=== PATIENT | female | born 1990 | race Caucasian/White ===

== ENCOUNTER 2019-03-23 18:58 | Inpatient (IN) | payer MEDICAID ==
[2019-03-23] MEDS: ACETAMINOPHEN 325 MG TAB PO (20:10)
[2019-03-23 20:24] LABS: ADD MAN DIFF? NO
[2019-03-23 20:25] LABS: WHITE BLOOD COUNT 8.3 10^3/ul (4.8-10.8)
[2019-03-23 20:25] LABS: BASOPHILS % 0.5 % (0.0-2.0); EOSINOPHILS # 0.1 10^3/ul (0.0-0.5); EOSINOPHILS % 1.2 % (0.0-7.0); HEMATOCRIT 40.8 % (37.0-47.0); HEMOGLOBIN 13.4 g/dl (12.0-16.0); LYMPHOCYTES # 2.1 10^3/ul (0.8-2.9); LYMPHOCYTES % 25.3 % (15.0-51.0); MEAN CORPUSCULAR HGB CONC 32.8 g/dl (32.0-37.0); MEAN CORPUSCULAR VOLUME 91.5 fl (82.0-101.0); MEAN PLATELET VOLUME 10.8 fl (7.4-10.4); MONOCYTE # 0.6 10^3/ul (0.3-0.9); NEUTROPHIL # 5.4 10^3/ul (1.6-7.5); NEUTROPHILS % 65.8 % (39.0-77.0); PLATELET COUNT 215 10^3/UL (140-415); RED BLOOD COUNT 4.46 10^6/ul (4.20-5.40); RED CELL DISTRIBUTION WIDTH 12.9 % (11.5-14.5)
[2019-03-23 20:30] LABS: ADD UMIC YES; UR ASCORBIC ACID NEGATIVE (NEGATIVE); UR BILIRUBIN (Dip) NEGATIVE (NEGATIVE); UR BLOOD (Dip) 3+ mg/dL (NEGATIVE); UR CLARITY SLIGHTLY CLOUDY (CLEAR); UR COLOR YELLOW (YELLOW); UR GLUCOSE (Dip) NEGATIVE (NEGATIVE); UR KETONES (Dip) NEGATIVE (NEGATIVE); UR LEUKOCYTE ESTERASE (Dip) NEGATIVE Leu/ul (NEGATIVE); UR NITRITE (Dip) NEGATIVE (NEGATIVE); UR RBC 165 /HPF (0-5); UR SPECIFIC GRAVITY (Dip) 1.015 (1.003-1.030); UR SQUAMOUS EPITHELIAL CELL FEW /HPF (FEW); UR TOTAL PROTEIN (Dip) NEGATIVE (NEGATIVE); UR UROBILINOGEN (Dip) NEGATIVE (NEGATIVE); UR WBC 6 /HPF (0-5)
[2019-03-23] MEDS: SOD CHLORIDE 0.9% 1,000 ML IV (22:15)
[2019-03-24] MEDS: LACTATED RINGER'S 1,000 ML IV ×3 (02:24→10:37)
[2019-03-24] MEDS: morphine 4 MG/ML VIAL IV (06:42)
[2019-03-24 07:28] LABS: HEMATOCRIT 39.1 % (37.0-47.0); HEMOGLOBIN 12.6 g/dl (12.0-16.0)
[2019-03-24] MEDS: CEFAZOLIN 2 GM/50 ML (PMX) 50 ML IVPB (10:20)
[2019-03-24] MEDS ORDERED: MIDAZOLAM 1 MG/ML 2 ML INJ (13:14)
[2019-03-24] MEDS ORDERED: FENTAnyl 50 MCG/ML VIAL (13:14)
[2019-03-24] MEDS ORDERED: CEFAZOLIN 1 GM INJ (13:14)
[2019-03-24] MEDS ORDERED: ROPIVACAINE 0.2% 20 ML VIAL (13:14)
[2019-03-24] MEDS ORDERED: PROPOFOL 20 ML (13:14)
[2019-03-24] MEDS ORDERED: ROCURONIUM 50 MG INJ (13:14)
[2019-03-24] MEDS ORDERED: BUPIVACAINE 0.5%/EPI (SDV) 30 ML INJ (13:48)
[2019-03-24] MEDS: BUPIVACAINE 0.25%/EPI (SDV) 10 ML INJ (13:58)
[2019-03-24] MEDS ORDERED: DEXAMETHASONE 4 MG/ML 5 ML INJ (14:06)
[2019-03-24] MEDS ORDERED: METOCLOPRAMIDE 10 MG INJ (14:06)
[2019-03-24] MEDS ORDERED: KETOROLAC 30 MG INJ (14:06)
[2019-03-24] MEDS ORDERED: ONDANSETRON 4 MG INJ (14:06)
[2019-03-24] MEDS ORDERED: GLYCOPYRROLATE 0.4 MG INJ (14:30)
[2019-03-24] MEDS ORDERED: LABETALOL HCL 20MG INJ IV (14:30)
[2019-03-24] MEDS ORDERED: hydrALAzine 20 MG INJ IV (14:30)
[2019-03-24] MEDS ORDERED: METOCLOPRAMIDE 10 MG INJ IV (14:30)
[2019-03-24] MEDS ORDERED: ONDANSETRON 4 MG INJ IV (14:30)
[2019-03-24] MEDS ORDERED: HYDROmorphONE 1 MG/5 ML IV SYRINGE IV ×3 (14:30)
[2019-03-24] MEDS ORDERED: FENTAnyl 50 MCG/ML VIAL IV ×3 (14:30)
[2019-03-24] MEDS ORDERED: NEOSTIGMINE 3 MG/3 ML SYRINGE (14:30)
[2019-03-24] MEDS ORDERED: HYDROCODONE/APAP (5/325) TAB PO (17:00)
[2019-03-24 17:26] LABS: HEMATOCRIT 38.5 % (37.0-47.0); HEMOGLOBIN 12.7 g/dl (12.0-16.0)
[2019-03-24 21:28] LABS: HEMATOCRIT 38.6 % (37.0-47.0); HEMOGLOBIN 12.9 g/dl (12.0-16.0)
[2019-03-24] MEDS: METOCLOPRAMIDE 10 MG INJ IV (21:37)
[2019-03-25 00:55] LABS: HEMATOCRIT 36.7 % (37.0-47.0); HEMOGLOBIN 12.4 g/dl (12.0-16.0)
[2019-03-25 10:18] LABS: HEMATOCRIT 39.3 % (37.0-47.0); HEMOGLOBIN 13.1 g/dl (12.0-16.0)
[2019-03-25 16:02] LABS: HEMATOCRIT 36.1 % (37.0-47.0); HEMOGLOBIN 12.1 g/dl (12.0-16.0)
[2019-03-25 17:31] LABS: HEMATOCRIT 38.7 % (37.0-47.0)
[2019-03-25 20:50] LABS: HEMATOCRIT 36.3 % (37.0-47.0); HEMOGLOBIN 12.1 g/dl (12.0-16.0)
[2019-03-25 21:08] LABS: ALANINE AMINOTRANSFERASE 22 IU/L (13-69); ALBUMIN 3.9 g/dl (3.3-4.9); ALKALINE PHOSPHATASE 47 IU/L (42-121); ANION GAP 12 (5-13); ASPARTATE AMINO TRANSFERASE 15 IU/L (15-46); BILIRUBIN,INDIRECT 0.6 mg/dl (0-1.1); BILIRUBIN,TOTAL 0.6 mg/dl (0.2-1.3); BLOOD UREA NITROGEN 14 mg/dl (7-20); CALCIUM 8.4 mg/dl (8.4-10.2); CARBON DIOXIDE 20 mmol/L (21-31); CHLORIDE 107 mmol/L (97-110); CREATININE 0.61 mg/dl (0.44-1.00); Estimated GFR > 60 mL/min (>60); GLUCOSE 122 mg/dl (70-220); POTASSIUM 3.8 mmol/L (3.5-5.1); SODIUM 139 mmol/L (135-144)
[2019-03-26 07:53] LABS: HEMATOCRIT 36.7 % (37.0-47.0)
[2019-03-26] MEDS ORDERED: METHOTREXATE 50 MG INJ IM (12:30)
[2019-03-26 13:32] LABS: HEMOGLOBIN 12.1 g/dl (12.0-16.0)
[2019-03-26] MEDS: METHOTREXATE 50 MG INJ IM (14:28)
[2019-03-26 17:08] LABS: HEMATOCRIT 38.8 % (37.0-47.0); HEMOGLOBIN 12.7 g/dl (12.0-16.0)
[2019-03-26 21:10] LABS: HEMATOCRIT 41.8 % (37.0-47.0); HEMOGLOBIN 13.7 g/dl (12.0-16.0)
[2019-03-27 09:50] LABS: HEMATOCRIT 39.4 % (37.0-47.0); HEMOGLOBIN 13.1 g/dl (12.0-16.0)
[2019-03-27 13:40] LABS: HEMOGLOBIN 13.9 g/dl (12.0-16.0)
== END 2019-03-27 16:35 | disposition home or self-care (01) | DRG 817 ==
LOC: FTE 18:58 → MS3 03-24 00:12
PROVIDERS: Obstetrics & Gynecology Obstetrics
PROC: 10T24ZZ Resection of Products of Conception, Ectopic, Percutaneous Endoscopic Approach (ICD-10-PCS; principal; 2019-03-24 11:30)
DX: O00.101 Right tubal pregnancy without intrauterine pregnancy (principal); K66.1 Hemoperitoneum
CPT/HCPCS: 36415; 76801; 76817; 80048; 80076; 81001; 84702; 85014; 85018; 85025; 86850; 86900; 86901; 88305; 99285-25

== ENCOUNTER 2019-03-28 18:47 | Inpatient (IN) | payer MEDICAID ==
[2019-03-28 20:24] LABS: ADD MAN DIFF? NO
[2019-03-28 20:26] LABS: WHITE BLOOD COUNT 9.1 10^3/ul (4.8-10.8)
[2019-03-28 20:26] LABS: BASOPHILS % 0.4 % (0.0-2.0); EOSINOPHILS # 0.1 10^3/ul (0.0-0.5); EOSINOPHILS % 1.3 % (0.0-7.0); HEMATOCRIT 41.4 % (37.0-47.0); HEMOGLOBIN 13.7 g/dl (12.0-16.0); LYMPHOCYTES # 2.1 10^3/ul (0.8-2.9); LYMPHOCYTES % 22.7 % (15.0-51.0); MEAN CORPUSCULAR HGB CONC 33.1 g/dl (32.0-37.0); MEAN CORPUSCULAR VOLUME 90.6 fl (82.0-101.0); MEAN PLATELET VOLUME 10.6 fl (7.4-10.4); MONOCYTE # 0.4 10^3/ul (0.3-0.9); MONOCYTES % 4.9 % (0.0-11.0); NEUTROPHIL # 6.4 10^3/ul (1.6-7.5); NEUTROPHILS % 70.4 % (39.0-77.0); PLATELET COUNT 240 10^3/UL (140-415); RED BLOOD COUNT 4.57 10^6/ul (4.20-5.40); RED CELL DISTRIBUTION WIDTH 12.4 % (11.5-14.5)
[2019-03-28 20:35] LABS: ADD UMIC YES; UR ASCORBIC ACID 20 mg/dL (NEGATIVE); UR BILIRUBIN (Dip) NEGATIVE (NEGATIVE); UR BLOOD (Dip) 1+ mg/dL (NEGATIVE); UR CLARITY SLIGHTLY CLOUDY (CLEAR); UR COLOR YELLOW (YELLOW); UR GLUCOSE (Dip) NEGATIVE (NEGATIVE); UR KETONES (Dip) NEGATIVE (NEGATIVE); UR LEUKOCYTE ESTERASE (Dip) NEGATIVE Leu/ul (NEGATIVE); UR NITRITE (Dip) NEGATIVE (NEGATIVE); UR RBC 0 /HPF (0-5); UR SPECIFIC GRAVITY (Dip) 1.021 (1.003-1.030); UR SQUAMOUS EPITHELIAL CELL FEW /HPF (FEW); UR TOTAL PROTEIN (Dip) NEGATIVE (NEGATIVE); UR UROBILINOGEN (Dip) NEGATIVE (NEGATIVE); UR WBC 2 /HPF (0-5)
[2019-03-28] MEDS: morphine 4 MG/ML VIAL IV (20:46)
[2019-03-28] MEDS: ONDANSETRON 4 MG INJ IV (20:46)
[2019-03-28 20:55] LABS: ALANINE AMINOTRANSFERASE 28 IU/L (13-69); ALBUMIN 4.3 g/dl (3.3-4.9); ALKALINE PHOSPHATASE 63 IU/L (42-121); ANION GAP 9 (5-13); ASPARTATE AMINO TRANSFERASE 20 IU/L (15-46); BILIRUBIN,INDIRECT 0.8 mg/dl (0-1.1); BILIRUBIN,TOTAL 0.8 mg/dl (0.2-1.3); BLOOD UREA NITROGEN 15 mg/dl (7-20); CALCIUM 9.6 mg/dl (8.4-10.2); CARBON DIOXIDE 24 mmol/L (21-31); CHLORIDE 105 mmol/L (97-110); CREATININE 0.55 mg/dl (0.44-1.00); Estimated GFR > 60 mL/min (>60); GLUCOSE 99 mg/dl (70-220); LIPASE 83 U/L (23-300); POTASSIUM 4.3 mmol/L (3.5-5.1); SODIUM 138 mmol/L (135-144); TOTAL PROTEIN 7.6 g/dl (6.1-8.1)
[2019-03-28] MEDS: SOD CHLORIDE 0.9% 100 ML (23:07)
[2019-03-28] MEDS: IOHEXOL 300MG/ML 150 ML BTL (23:07)
[2019-03-29] MEDS: METHOTREXATE 50 MG INJ IM ×3 (02:00→05:29)
[2019-03-29] MEDS: FAMOTIDINE 20 MG INJ IV (03:05)
[2019-03-29] MEDS: ONDANSETRON 4 MG INJ IV ×2 (03:20→17:13)
[2019-03-29] MEDS: SOD CHLORIDE 0.9% 1,000 ML IV (03:29)
[2019-03-29] MEDS: ACETAMINOPHEN 325 MG TAB PO ×2 (03:39→06:41)
[2019-03-29] MEDS: morphine 4 MG/ML VIAL IV (05:29)
[2019-03-29 09:32] LABS: ADD MAN DIFF? NO
[2019-03-29 09:43] LABS: BASOPHILS % 0.3 % (0.0-2.0); EOSINOPHILS % 0.2 % (0.0-7.0); LYMPHOCYTES # 1.2 10^3/ul (0.8-2.9); LYMPHOCYTES % 12.4 % (15.0-51.0); MEAN CORPUSCULAR HGB CONC 33.3 g/dl (32.0-37.0); MEAN CORPUSCULAR VOLUME 90.1 fl (82.0-101.0); MEAN PLATELET VOLUME 10.8 fl (7.4-10.4); MONOCYTE # 0.6 10^3/ul (0.3-0.9); MONOCYTES % 6.4 % (0.0-11.0); NEUTROPHIL # 7.7 10^3/ul (1.6-7.5); NEUTROPHILS % 80.3 % (39.0-77.0); PLATELET COUNT 228 10^3/UL (140-415); RED BLOOD COUNT 4.33 10^6/ul (4.20-5.40); RED CELL DISTRIBUTION WIDTH 12.5 % (11.5-14.5)
[2019-03-29 09:43] LABS: WHITE BLOOD COUNT 9.6 10^3/ul (4.8-10.8)
[2019-03-29] MEDS: LACTATED RINGER'S 1,000 ML IV ×2 (10:05→16:30)
[2019-03-29 10:10] LABS: ALANINE AMINOTRANSFERASE 30 IU/L (13-69); ALBUMIN 3.8 g/dl (3.3-4.9); ALBUMIN/GLOBULIN RATIO 1.05; ALKALINE PHOSPHATASE 64 IU/L (42-121); ANION GAP 8 (5-13); ASPARTATE AMINO TRANSFERASE 20 IU/L (15-46); BILIRUBIN,INDIRECT 1.1 mg/dl (0-1.1); BILIRUBIN,TOTAL 1.1 mg/dl (0.2-1.3); BLOOD UREA NITROGEN 9 mg/dl (7-20); CALCIUM 9.1 mg/dl (8.4-10.2); CARBON DIOXIDE 25 mmol/L (21-31); CHLORIDE 104 mmol/L (97-110); CREATININE 0.56 mg/dl (0.44-1.00); Estimated GFR > 60 mL/min (>60); GLUCOSE 105 mg/dl (70-220); POTASSIUM 4.3 mmol/L (3.5-5.1); SODIUM 137 mmol/L (135-144); TOTAL PROTEIN 7.4 g/dl (6.1-8.1)
[2019-03-29] MEDS ORDERED: CEFAZOLIN 1 GM INJ (11:30)
[2019-03-29] MEDS ORDERED: DESFLURANE 15 MIN (11:30)
[2019-03-29] MEDS ORDERED: LIDOCAINE 2% (SDV) 5 ML INJ (11:38)
[2019-03-29] MEDS ORDERED: ROCURONIUM 50 MG INJ (11:38)
[2019-03-29] MEDS ORDERED: PROPOFOL 20 ML (11:38)
[2019-03-29] MEDS ORDERED: DEXAMETHASONE 4 MG/ML 5 ML INJ (11:39)
[2019-03-29] MEDS ORDERED: NEOSTIGMINE 3 MG/3 ML SYRINGE (11:39)
[2019-03-29] MEDS ORDERED: GLYCOPYRROLATE 0.4 MG INJ (11:39)
[2019-03-29] MEDS ORDERED: ONDANSETRON 4 MG INJ (11:39)
[2019-03-29] MEDS ORDERED: FAMOTIDINE 20 MG INJ (11:39)
[2019-03-29] MEDS ORDERED: HYDROmorphONE 1 MG/5 ML IV SYRINGE IV ×2 (12:43→13:00)
[2019-03-29] MEDS: HYDROmorphONE 1 MG/5 ML IV SYRINGE IV ×3 (12:49→13:21)
[2019-03-29] MEDS ORDERED: OXYCODONE/ACETAMINOPHEN (5/325) TAB PO ×2 (13:00)
[2019-03-29] MEDS ORDERED: ONDANSETRON 4 MG INJ IV ×2 (13:00→18:30)
[2019-03-29] MEDS ORDERED: KETOROLAC 30 MG INJ IV (13:00)
[2019-03-29] MEDS ORDERED: MEPERIDINE 25 MG INJ IV (13:00)
[2019-03-29] MEDS ORDERED: FENTAnyl 50 MCG/ML VIAL IV ×2 (13:00)
[2019-03-29] MEDS: IBUPROFEN 600 MG TAB PO (17:14)
[2019-03-29] MEDS ORDERED: IBUPROFEN 600 MG TAB PO (18:00)
[2019-03-30] MEDS: LACTATED RINGER'S 1,000 ML IV ×3 (00:14→16:30)
[2019-03-30] MEDS: IBUPROFEN 600 MG TAB PO ×4 (05:23→18:00)
[2019-03-30] MEDS: ACETAMINOPHEN 325 MG TAB PO ×2 (05:28→12:57)
[2019-03-31] MEDS ORDERED: HYDROCODONE/APAP (5/325) TAB PO
[2019-03-31] MEDS ORDERED: IBUPROFEN LIQUID (PED) 20 MG/ML CUP PO
[2019-03-31] MEDS ORDERED: ACETAMINOPHEN 500 MG TAB PO
[2019-03-31] MEDS: LACTATED RINGER'S 1,000 ML IV ×3 (00:30→16:30)
[2019-03-31] MEDS: IBUPROFEN 600 MG TAB PO ×4 (06:00→18:00)
== END 2019-03-31 18:40 | disposition home or self-care (01) | DRG 819 ==
LOC: MS1 22:54 → E/R 18:47
PROC: 10T24ZZ Resection of Products of Conception, Ectopic, Percutaneous Endoscopic Approach (ICD-10-PCS; principal; 2019-03-29 11:23)
PROC: 10D27ZZ Extraction of Products of Conception, Ectopic, Via Natural or Artificial Opening (ICD-10-PCS; 2019-03-29 11:23)
PROC: 0CJS8ZZ Inspection of Larynx, Via Natural or Artificial Opening Endoscopic (ICD-10-PCS; 2019-03-29 11:23)
DX: O00.101 Right tubal pregnancy without intrauterine pregnancy (principal); R13.10 Dysphagia, unspecified; R49.0 Dysphonia; K13.70 Unspecified lesions of oral mucosa
CPT/HCPCS: 36415; 74177; 76830; 76856; 80053; 81001; 83690; 84702; 85025; 87880; 88305; 96374; 96375; 99285-25